=== PATIENT | female | born 1970 | race Hispanic/Latino ===

== ENCOUNTER 2018-01-30 08:13 | Inpatient (IN) | payer BC, OTHER ==
[~2018-01-30] VITALS: Ht 170.2 cm; Wt 89.0 kg
[2018-01-30 09:21] LABS: BASOPHILS % (AUTO) 0.8 % (0.0-5.0); EOSINOPHILS % (AUTO) 0.3 % (0.0-8.0); HEMATOCRIT 44.5 % (36-48); LYMPHOCYTES % (AUTO) 15.1 % (21.0-51.0); MEAN CORPUSCULAR HEMOGLOBIN 28.8 pg (27.0-33.0); MEAN CORPUSCULAR HGB CONC 32.8 g/dL (32.0-36.0); MEAN CORPUSCULAR VOLUME 87.6 fL (79-99); MONOCYTES % (AUTO) 5.6 % (3.0-13.0); NEUTROPHILS % (AUTO) 78.2 % (40.0-77.0); PLATELET COUNT (AUTO) 211 K/uL (130-400); RED BLOOD CELL COUNT(AUTO) 5.07 MIL/uL (4.00-5.50); RED CELL DISTRIBUTION WIDTH 13.6 % (11.0-15.5); WHITE BLOOD COUNT (AUTO) 6.4 K/uL (4.8-10.8)
[2018-01-30 09:44] LABS: CREATINE KINASE, TOTAL 152 U/L (21-232); MYOGLOBIN 31 ng/mL (10-92); TROPONIN I < 0.04 ng/mL (0.00-0.06)
[2018-01-30 09:55] LABS: ALBUMIN 3.7 g/dL (3.5-5.0); BILIRUBIN,TOTAL 0.3 mg/dL (0.2-1.0); CREATININE 0.8 mg/dL (0.5-1.5); POTASSIUM 3.9 mmol/L (3.5-5.1); TOTAL PROTEIN, SERUM 7.8 g/dL (6.0-8.3)
[2018-01-30 12:19] VITALS: BP 137/93
[2018-01-30] MEDS ORDERED: METOPROLOL TARTRATE 1 MG/ML 5ML VIAL IV PRN (13:00)
[2018-01-30 13:39] LABS: CREATINE KINASE, TOTAL 52 U/L (21-232); MYOGLOBIN 24 ng/mL (10-92); TROPONIN I < 0.04 ng/mL (0.00-0.06)
[2018-01-30 15:30] VITALS: BP 122/81
[2018-01-30 19:08] VITALS: BP 135/83
[2018-01-30 19:45] LABS: CREATINE KINASE, TOTAL 43 U/L (21-232); MYOGLOBIN 22 ng/mL (10-92); TROPONIN I < 0.04 ng/mL (0.00-0.06)
[2018-01-30] MEDS ORDERED: ENOXAPARIN SODIUM 100 MG/1 ML SQ SCH (21:00)
[2018-01-30] MEDS: SODIUM CHLORIDE 0.9% 1000ML 1,000 ML IV SCH (22:05)
[2018-01-30] MEDS ORDERED: CYCL10TA7 PO (22:16)
[2018-01-30] MEDS ORDERED: TRAM50TA4 PO (22:16)
[2018-01-30] MEDS ORDERED: PREG100C PO (22:16)
[2018-01-30] MEDS ORDERED: MELO7.5T12 PO (22:16)
[2018-01-30] MEDS ORDERED: ACETAMINOPHEN 325 MG TAB PO PRN (22:45)
[2018-01-30] MEDS ORDERED: MELOXICAM 7.5 MG TABLET PO PRN (22:45)
[2018-01-30] MEDS ORDERED: TRAMADOL HCL 50 MG TABLET PO PRN (22:45)
[2018-01-30 23:38] VITALS: BP 135/92
[2018-01-31 04:36] VITALS: BP 132/78
[2018-01-31 04:39] LABS: BASOPHILS % (AUTO) 0.9 % (0.0-5.0); EOSINOPHILS % (AUTO) 1.1 % (0.0-8.0); HEMATOCRIT 39.6 % (36-48); LYMPHOCYTES % (AUTO) 40.9 % (21.0-51.0); MEAN CORPUSCULAR HEMOGLOBIN 29.5 pg (27.0-33.0); MEAN CORPUSCULAR HGB CONC 33.8 g/dL (32.0-36.0); MEAN CORPUSCULAR VOLUME 87.3 fL (79-99); MONOCYTES % (AUTO) 8.7 % (3.0-13.0); NEUTROPHILS % (AUTO) 48.4 % (40.0-77.0); PLATELET COUNT (AUTO) 229 K/uL (130-400); RED BLOOD CELL COUNT(AUTO) 4.54 MIL/uL (4.00-5.50); RED CELL DISTRIBUTION WIDTH 13.6 % (11.0-15.5); WHITE BLOOD COUNT (AUTO) 6.1 K/uL (4.8-10.8)
[2018-01-31 04:45] LABS: HEMOGLOBIN A1C 5.1 % (4.0-6.0)
[2018-01-31 04:58] LABS: CREATININE 0.8 mg/dL (0.5-1.5); MAGNESIUM 2.1 mg/dL (1.80-2.40); POTASSIUM 3.5 mmol/L (3.5-5.1)
[2018-01-31] MEDS: SODIUM CHLORIDE 0.9% 1000ML 1,000 ML IV SCH ×2 (06:08→16:42)
[2018-01-31 07:55] LABS: CHOLESTEROL 170 mg/dL (<200); HDL CHOLESTEROL 46 mg/dL (35-85); LDL DIRECT 108 mg/dL (0-99); TRIGLYCERIDES 77 mg/dL (30-200)
[2018-01-31 07:56] VITALS: BP 125/85
[2018-01-31] MEDS: REGADENOSON 0.4 MG/5 ML PF SYG IVP SCH (09:45)
[2018-01-31] MEDS: PANTOPRAZOLE SODIUM 40 MG TABLET.DR PO SCH (09:56)
[2018-01-31] MEDS: CYCLOBENZAPRINE HCL 10 MG TABLET PO SCH ×3 (09:56→22:23)
[2018-01-31] MEDS: ASPIRIN 81MG TAB.CHEW PO SCH (09:56)
[2018-01-31] MEDS: PREGABALIN 100 MG CAPSULE PO SCH ×2 (09:56→22:23)
[2018-01-31 10:47] VITALS: BP 131/74
[2018-01-31 15:42] VITALS: BP 128/76
[2018-01-31 19:36] VITALS: BP 133/76
[2018-01-31] MEDS ORDERED: ENOXAPARIN SODIUM 40 MG/0.4 ML SYRINGE SQ SCH (21:00)
[2018-01-31 23:05] VITALS: BP 125/72
[2018-02-01 03:57] VITALS: BP 113/68
[2018-02-01 04:28] LABS: BASOPHILS % (AUTO) 0.9 % (0.0-5.0); EOSINOPHILS % (AUTO) 1.5 % (0.0-8.0); HEMATOCRIT 39.8 % (36-48); MEAN CORPUSCULAR HEMOGLOBIN 29.2 pg (27.0-33.0); MEAN CORPUSCULAR HGB CONC 33.3 g/dL (32.0-36.0); MEAN CORPUSCULAR VOLUME 87.7 fL (79-99); NEUTROPHILS % (AUTO) 49.6 % (40.0-77.0); PLATELET COUNT (AUTO) 191 K/uL (130-400); RED BLOOD CELL COUNT(AUTO) 4.54 MIL/uL (4.00-5.50); RED CELL DISTRIBUTION WIDTH 13.6 % (11.0-15.5); WHITE BLOOD COUNT (AUTO) 5.6 K/uL (4.8-10.8)
[2018-02-01 04:37] LABS: CREATININE 0.7 mg/dL (0.5-1.5); POTASSIUM 3.5 mmol/L (3.5-5.1)
[2018-02-01] MEDS: SODIUM CHLORIDE 0.9% 1000ML 1,000 ML IV SCH ×2 (06:02→12:42)
[2018-02-01 07:45] VITALS: BP 121/73
[2018-02-01] MEDS: REGADENOSON 0.4 MG/5 ML PF SYG IVP SCH (08:50)
[2018-02-01] MEDS ORDERED: ENOXAPARIN SODIUM 40 MG/0.4 ML SYRINGE SQ SCH (09:00)
[2018-02-01] MEDS: PANTOPRAZOLE SODIUM 40 MG TABLET.DR PO SCH (10:10)
[2018-02-01] MEDS: CYCLOBENZAPRINE HCL 10 MG TABLET PO SCH ×2 (10:10→14:42)
[2018-02-01] MEDS: PREGABALIN 100 MG CAPSULE PO SCH (10:10)
[2018-02-01] MEDS: ASPIRIN 81MG TAB.CHEW PO SCH (10:10)
[2018-02-01 11:00] VITALS: BP 124/75
[2018-02-01 15:30] VITALS: BP 115/72
== END 2018-02-01 16:58 | disposition home or self-care (01) | DRG 206 ==
LOC: EDH 08:13 → EDHIP 10:42 → 3AH 12:09
PROVIDERS: ADMIT Hospitalist; ATTEND Hospitalist
DX: M94.0 Chondrocostal junction syndrome [Tietze] (principal); I20.0 Unstable angina; R94.31 Abnormal electrocardiogram [ECG] [EKG]; R00.2 Palpitations; M25.512 Pain in left shoulder; M06.9 Rheumatoid arthritis, unspecified; M79.7 Fibromyalgia; Z82.49 Family history of ischemic heart disease and other diseases of the circulatory system
CPT/HCPCS: 36415; 71045; 78452; 80048; 80053; 80061; 82550; 83036; 83735; 83874; 84443; 84484; 85025; 93005; 93306; A9500; J1650; J2785; J7030

== ENCOUNTER → 2018-02-13 | Outpatient (CLI) | payer BC, OTHER ==
[~2018-02-13] MED LIST: CYCL10TA7 PO; IOHEXOL-350 75 ML VIAL IV ONE; MELO7.5T12 PO; METOPROLOL TARTRATE 1 MG/ML 5ML VIAL IV ONE; PREG100C PO; TRAM50TA4 PO
== END | disposition home or self-care (01) ==
LOC: RAH 12:57
PROVIDERS: ATTEND Internal Medicine Cardiovascular Disease
DX: I25.3 Aneurysm of heart (principal)
CPT/HCPCS: 75574; J3490; Q9967

== ENCOUNTER → 2019-04-17 | Outpatient (CLI) | payer BC ==
[~2019-04-17] MED LIST changes: -IOHEXOL-350 75 ML VIAL IV ONE; -METOPROLOL TARTRATE 1 MG/ML 5ML VIAL IV ONE
== END | disposition home or self-care (01) ==
LOC: SHCH 07:39
PROVIDERS: ATTEND Internal Medicine Cardiovascular Disease
DX: I65.23 Occlusion and stenosis of bilateral carotid arteries (principal); Q27.1 Congenital renal artery stenosis
CPT/HCPCS: 93880; 93975

== ENCOUNTER 2019-09-30 14:13 | Emergency (ER) | payer BC ==
[2019-09-30 15:52] LABS: BASOPHILS % (AUTO) 0.8 % (0.0-5.0); EOSINOPHILS % (AUTO) 2.1 % (0.0-8.0); HEMATOCRIT 36.1 % (36-48); LYMPHOCYTES % (AUTO) 25.6 % (21.0-51.0); MEAN CORPUSCULAR HEMOGLOBIN 28.5 pg (27.0-33.0); MEAN CORPUSCULAR HGB CONC 32.7 g/dL (32.0-36.0); MEAN CORPUSCULAR VOLUME 87.2 fL (79-99); MONOCYTES % (AUTO) 8.5 % (3.0-13.0); NEUTROPHILS % (AUTO) 62.8 % (40.0-77.0); PLATELET COUNT (AUTO) 240 K/uL (130-400); RED BLOOD CELL COUNT(AUTO) 4.14 MIL/uL (4.00-5.50); RED CELL DISTRIBUTION WIDTH 13.5 % (11.0-15.5); WHITE BLOOD COUNT (AUTO) 6.3 K/uL (4.8-10.8)
[2019-09-30 16:06] LABS: CREATININE 0.9 mg/dL (0.5-1.5); POTASSIUM 4.7 mmol/L (3.5-5.1)
[2019-09-30 16:12] LABS: ALBUMIN 3.4 g/dL (3.5-5.0); BILIRUBIN,TOTAL 0.3 mg/dL (0.2-1.0); TOTAL PROTEIN, SERUM 7.2 g/dL (6.0-8.3)
[2019-09-30 16:28] LABS: APPEARANCE,URINE Clear (CLEAR); BILIRUBIN,URINE Negative (NEGATIVE); COLOR,URINE Yellow (YELLOW); GLUCOSE, URINE (UA) Negative (NEGATIVE); KETONES,URINE Negative (NEGATIVE); LEUKOCYTE ESTERASE ,URINE Trace (NEGATIVE); NITRATE,URINE Negative (NEGATIVE); OCCULT BLOOD,URINE Negative (NEGATIVE); PH,URINE 5.5 (5.0-8.0); PROTEIN,URINE Negative (NEGATIVE); UROBILINOGEN,URINE 0.2 mg/dL (0.2-1.0)
[2019-09-30 16:36] LABS: AMPHET/METH SCREEN,URINE NEGATIVE (NEGATIVE); BARBITURATE SCREEN, URINE NEGATIVE (NEGATIVE); BENZODIAZEPINES SCREEN,URINE NEGATIVE (NEGATIVE); CANNABINOID SCREEN,URINE NEGATIVE (NEGATIVE); COCAINE SCREEN,URINE NEGATIVE (NEGATIVE); OPIATE SCREEN,URINE NEGATIVE (NEGATIVE); PHENCYCLIDINE SCREEN,URINE NEGATIVE (NEGATIVE)
[2019-09-30 16:37] LABS: BACTERIA,URINE Rare /HPF (None Seen); RBC,URINE None Seen /HPF (0-1); WBC,URINE 0-1 /HPF (0-1)
[2019-09-30 16:38] LABS: SQUAMOUS EPITHELIAL CELL,UR 0-2 /HPF (0-2)
== END 2019-09-30 18:04 | disposition home or self-care (01) ==
LOC: EDH 14:13
DX: H81.399 Other peripheral vertigo, unspecified ear (principal); M19.90 Unspecified osteoarthritis, unspecified site
CPT/HCPCS: 36415; 70450; 80053; 80305; 81001; 84484; 85025; 93005